=== PATIENT | male | born 1990 | race Two or more races ===

== ENCOUNTER 2016-11-24 13:39 | Emergency (ER) | payer MEDICAID, OTHER ==
[~2016-11-24] VITALS: Ht 175.3 cm; Wt 106.6 kg
[~2016-11-24 13:39] MED LIST: ALPR1TAB7; GABA300C8; HYDR-2595; METH-562; SERT-160
[2016-11-24 14:43] VITALS: BP 153/92
[2016-11-24] MEDS ORDERED: METHOCARBAMOL 500 MG TAB PO ONE (15:30)
[2016-11-24] MEDS ORDERED: ONDANSETRON HCL 4 MG/2 ML VIAL IM ONE (15:30)
[2016-11-24] MEDS ORDERED: HYDROmorphone HCL 2 MG/ML VL IM ONE (15:30)
== END 2016-11-24 16:31 | disposition home or self-care (01) ==
LOC: ER 13:47
DX: G89.29 Other chronic pain (principal); M54.5 Low back pain; M51.27 Other intervertebral disc displacement, lumbosacral region; F12.10 Cannabis abuse, uncomplicated
CPT/HCPCS: 72131; 96372; 99284; J1170; J2405

== ENCOUNTER 2017-02-28 08:43 | Emergency (ER) | payer MEDICAID ==
[~2017-02-28] VITALS: Ht 175.3 cm; Wt 109.8 kg
[2017-02-28 15:22] VITALS: BP 142/60
== END 2017-02-28 16:00 | disposition home or self-care (01) ==
LOC: ER 08:43
DX: G89.29 Other chronic pain (principal); M54.2 Cervicalgia; M54.9 Dorsalgia, unspecified; J02.9 Acute pharyngitis, unspecified; F12.10 Cannabis abuse, uncomplicated

== ENCOUNTER 2018-05-11 09:08 | Emergency (ER) | payer SELFPAY ==
[~2018-05-11] VITALS: Ht 175.3 cm; Wt 111.1 kg
[~2018-05-11 09:08] MED LIST changes: +GABA300C10; -GABA300C8
[2018-05-11 09:21] VITALS: BP 128/73
[2018-05-11] MEDS ORDERED: PROMETHAZINE HCL 25 MG/ML 1ML IM ONE (10:15)
[2018-05-11] MEDS ORDERED: MEPERIDINE HCL (50 MG/ML) 1 ML VIAL IM ONE (10:15)
[2018-05-11] MEDS ORDERED: MEPERIDINE HCL (25 MG/ML) 1ML VIAL IV ONE (11:00)
== END 2018-05-11 11:47 | disposition home or self-care (01) ==
LOC: EDBD 09:08 → ER 09:08
DX: G89.29 Other chronic pain (principal); M54.5 Low back pain; M54.16 Radiculopathy, lumbar region; F12.10 Cannabis abuse, uncomplicated
CPT/HCPCS: 72100; 96372; 96374; 99284; J2175; J2550

== ENCOUNTER 2020-02-15 18:14 | Emergency (ER) | payer SELFPAY ==
[~2020-02-15] VITALS: Ht 175.3 cm; Wt 106.6 kg
[2020-02-15 18:26] VITALS: BP 135/78
[2020-02-15] MEDS ORDERED: KETOROLAC TROMETH 60MG/2ML VIAL IM ONE (19:15)
== END 2020-02-15 19:39 | disposition home or self-care (01) ==
LOC: ER 18:14
DX: S39.012A Strain of muscle, fascia and tendon of lower back, initial encounter (principal); M62.830 Muscle spasm of back; F12.10 Cannabis abuse, uncomplicated; Z79.899 Other long term (current) drug therapy; X58.XXXA Exposure to other specified factors, initial encounter; Y93.89 Activity, other specified; Y92.89 Other specified places as the place of occurrence of the external cause; Y99.8 Other external cause status
CPT/HCPCS: 72100; 96372; 99283; J1885

== ENCOUNTER 2020-02-16 07:29 | Emergency (ER) | payer SELFPAY ==
[~2020-02-16] VITALS: Ht 175.3 cm; Wt 106.6 kg
[2020-02-16 07:39] VITALS: BP 135/59
[2020-02-16] MEDS ORDERED: KETOROLAC TROMETH 60MG/2ML VIAL IM ONE (08:00)
[2020-02-16] MEDS ORDERED: methylPREDNISolone SOD SUCC 125 MG/2 ML VL IM ONE (08:00)
[2020-02-16] MEDS ORDERED: HYDROcodone-ACET 7.5/325MG TAB PO ONE (08:30)
== END 2020-02-16 08:53 | disposition home or self-care (01) ==
LOC: ER 07:29
DX: M54.16 Radiculopathy, lumbar region (principal)
CPT/HCPCS: 96372; 99284; J1885; J2930

== ENCOUNTER 2020-11-18 08:55 | Emergency (ER) | payer MEDICAID ==
[~2020-11-18] VITALS: Ht 175.3 cm; Wt 103.0 kg
[2020-11-18 09:17] VITALS: BP 125/85
== END 2020-11-18 12:06 | disposition home or self-care (01) ==
LOC: ER 08:55
DX: S16.1XXA Strain of muscle, fascia and tendon at neck level, initial encounter (principal); X58.XXXA Exposure to other specified factors, initial encounter; Y93.89 Activity, other specified; Y92.89 Other specified places as the place of occurrence of the external cause; Y99.8 Other external cause status

== ENCOUNTER 2021-07-13 11:25 | Emergency (ER) | payer MEDICAID ==
[~2021-07-13] VITALS: Ht 175.3 cm; Wt 94.3 kg
[2021-07-13 12:41] VITALS: BP 130/75
== END 2021-07-13 12:42 | disposition home or self-care (01) ==
LOC: ER 11:25
DX: S60.222A Contusion of left hand, initial encounter (principal); W18.00XA Striking against unspecified object with subsequent fall, initial encounter; Y93.89 Activity, other specified; Y92.89 Other specified places as the place of occurrence of the external cause; Y99.8 Other external cause status
CPT/HCPCS: 73110; 73130

== ENCOUNTER 2021-09-01 01:40 | Emergency (ER) | payer MEDICAID ==
[~2021-09-01] VITALS: Ht 175.3 cm; Wt 93.0 kg
[2021-09-01 02:54] LABS: Basophils # (auto) 0.1 10 ^3/uL (0-0.2); Basophils % (auto) 0.6 % (0.0-2.0); Eosinophils # (auto) 0 10 ^3/uL (0-0.8); Eosinophils % (auto) 0.2 % (0.0-7.0); Hematocrit 40.5 % (41.0-53.0); Hemoglobin 14.2 g/dL (13.5-17.5); Lymphocytes # (auto) 3.9 10 ^3/uL (0.4-5.4); Lymphocytes % (auto) 27.2 % (10.0-50.0); Mean Corpuscular Hemoglobin 30.8 pg (28.0-32.0); Mean Corpuscular Volume 87.9 fL (80.0-100.0); Monocytes # (auto) 0.9 10 ^3/uL (0-1.3); Neutrophils # (auto) 9.4 10 ^3/uL (1.6-8.6); Nucleated Red Blood Cells % 0.1 %; Red Cell Distribution Width 13.3 % (11.8-14.3); White Blood Cell 14.3 10^3/uL (4.4-10.8)
[2021-09-01 02:56] LABS: Alanine Aminotransferase 35 U/L (16-61); Albumin 3.9 g/dL (3.4-5.0); Anion Gap 9 (5-15); Aspartate Aminotransferase 12 U/L (15-37); BUN/Creatinine Ratio 18.2; Blood Urea Nitrogen 16 mg/dL (7-18); Calcium 8.2 mg/dL (8.5-10.1); Carbon Dioxide 24 mmol/L (21-32); Chloride 105 mmol/L (98-107); GFR African American 131 mL/min; GFR Non-African American 108 mL/min; Glucose 141 mg/dL (74-106); Magnesium 2.2 mg/dL (1.6-2.6); Potassium 3.7 mmol/L (3.5-5.1); Sodium 138 mmol/L (136-145)
[2021-09-01 03:03] LABS: Alkaline Phosphatase 57 U/L (45-117); Bilirubin, Total 0.2 mg/dL (0.2-1.0); Total Protein 8.3 g/dL (6.4-8.2)
[2021-09-01 05:15] VITALS: BP 138/76
== END 2021-09-01 05:33 | disposition home or self-care (01) ==
LOC: ER 01:42
DX: R07.89 Other chest pain (principal); Z79.899 Other long term (current) drug therapy
CPT/HCPCS: 36415; 71045; 80053; 83735; 84484; 85025; 85379; 93005

== ENCOUNTER 2023-06-07 02:52 | Emergency (ER) | payer MEDICAID ==
[~2023-06-07] VITALS: Ht 175.3 cm; Wt 77.0 kg
[~2023-06-07 02:52] MED LIST changes: +GABA-1250; -GABA300C10
[2023-06-07 04:20] LABS: Basophils # (auto) 0.1 10 ^3/uL (0-0.2); Basophils % (auto) 0.6 % (0.0-2.0); Eosinophils # (auto) 0.3 10 ^3/uL (0-0.8); Eosinophils % (auto) 3.4 % (0.0-7.0); Hemoglobin 13.3 g/dL (13.5-17.5); Lymphocytes # (auto) 3.8 10 ^3/uL (0.4-5.4); Lymphocytes % (auto) 41.3 % (10.0-50.0); Mean Corpuscular Hgb Conc. 33.1 g/dL (32.0-36.0); Mean Corpuscular Volume 90.7 fL (80.0-100.0); Monocytes # (auto) 0.7 10 ^3/uL (0-1.3); Monocytes % (auto) 7.8 % (0.0-12.0); Neutrophils # (auto) 4.3 10 ^3/uL (1.6-8.6); Neutrophils % (auto) 46.9 % (37.0-80.0); Nucleated Red Blood Cells % 0.1 %; Red Blood Cells 4.41 10^6/uL (4.5-5.90); Red Cell Distribution Width 13.4 % (11.8-14.3); White Blood Cell 9.3 10^3/uL (4.4-10.8)
[2023-06-07 04:49] LABS: Alanine Aminotransferase 21 U/L (16-61); Albumin 3.8 g/dL (3.4-5.0); Anion Gap 5 (5-15); Aspartate Aminotransferase 16 U/L (15-37); BUN/Creatinine Ratio 19.4 (10.0-20.0); Blood Alcohol < 3.0 mg/dL (<10); Blood Urea Nitrogen 14 mg/dL (7-18); Calcium 8.6 mg/dL (8.5-10.1); Carbon Dioxide 28 mmol/L (21-32); Chloride 110 mmol/L (98-107); GFR African American 163 mL/min; GFR Non-African American 134 mL/min; Glucose 83 mg/dL (74-106); Potassium 3.9 mmol/L (3.5-5.1); Salicylate 2.5 mg/dL (2.8-20.0); Sodium 143 mmol/L (136-145)
[2023-06-07 04:51] LABS: Alkaline Phosphatase 36 U/L (45-117); Bilirubin, Total 0.1 mg/dL (0.2-1.0); Total Protein 7.1 g/dL (6.4-8.2)
[2023-06-07 04:52] LABS: Acetaminophen < 2.0 ug/mL (10-30)
[2023-06-07 05:57] VITALS: BP 105/56; PULSE 54; RESP 16; TEMP 97.9; O2SAT 95
[2023-06-07 06:57] LABS: Urine Bacteria NONE SEEN /hpf (None Seen); Urine Blood Negative /uL (Negative); Urine Specific Gravity 1.006 (1.001-1.035); Urine WBC <1 /hpf (0 - 3)
[2023-06-07 07:33] LABS: Alcohol, Urine < 3.0 mg/dL (0-10); Amphetamine Screen, Urine NEGATIVE (NEGATIVE); Barbiturate Scree,Urine NEGATIVE (NEGATIVE); Benzodiazephine Screen, Urine NEGATIVE (NEGATIVE); Cannabinoid Screen, Urine POSITIVE (NEGATIVE); Cocaine Screen, Urine NEGATIVE (NEGATIVE); Opiate Scree,Urine NEGATIVE (NEGATIVE); Phencyclidine Screen, Urine NEGATIVE (NEGATIVE)
[2023-06-07 10:53] VITALS: RESP 16; O2SAT 98
[2023-06-07] MEDS ORDERED: LORazepam 0.5 MG TAB PO PRN (12:00)
[2023-06-07] MEDS ORDERED: IBUPROFEN 600 MG TAB PO PRN (12:00)
[2023-06-07] MEDS ORDERED: ACETAMINOPHEN 325 MG TAB PO PRN (12:00)
[2023-06-07] MEDS ORDERED: DULoxetine HCL 30 MG CAP PO SCH ×2 (22:00)
== END 2023-06-07 18:08 | disposition left against medical advice (07) ==
LOC: ER 02:53
DX: F25.9 Schizoaffective disorder, unspecified (principal)
CPT/HCPCS: 36415; 80053; 80307; 80320; 80329; 81001; 85025

== ENCOUNTER 2025-06-13 18:28 | Emergency (ER) | payer MEDICAID ==
[~2025-06-13] VITALS: Ht 175.3 cm; Wt 96.0 kg
--- NOTE | 2025-06-13 18:44 | ED.PDOC ---
History of Present Illness HPI Comments This is a 35-year-old male with past medical history of bipolar disorder, major depression presented to the ED with a chief complaint of stabbing lower abdominal pain,rectal pain and bright red bleeding for 2 days prior to this visit. The patient mentioned that for last 2 days it was bright red blood 3 to 4 times a day but today the blood was mixed with the stool which was liquid in nature. He also complaint of lightheadedness since the morning. He denies fever, chills, nausea, vomiting, blurred vision, dysuria, hematuria, recent traveling or any positive sick contact. PCP: Dr. Marino Chief Complaint: GI Bleed Time Seen by MD: 18:30 Primary Care Provider: NONE Allergies: Coded Allergies: NO KNOWN ALLERGIES (Unverified , 09/23/14) Home Meds Reported Medications Methocarbamol (Robaxin) 500 Mg Tab, #60 10/20/15 Gabapentin (Gabapentin) 300 Mg Cap, #90 10/20/15 Hydrocodone-Acetaminophen (Hydrocodone/Acetaminophen) 1 Tab Tab, #60 10/20/15 Sertraline Hcl (Sertraline Hcl) 100 Mg Tab, #60 10/20/15 Alprazolam (Alprazolam) 1 Mg Tab, #60 10/20/15 Information Source: Patient Mode of Arrival: Ambulatory Severity: Moderate Timing: Days Duration: Since onset Prehospital treatment: None Past Medical History PAST MEDICAL HISTORY: Anxiety, Depression Past Medical History (Other): Bipolar disorder Surgical History: Denies all surgeries Surgical History (Other): Spine surgery in 2022 Family History Family History: Reviewed,noncontributory to illness Social History Smoker: Non-Smoker, Pipe Alcohol: Denies ETOH Use Drugs: Marijuana Lives In: Home Constitutional: denies: chills, diaphoresis, fatigue, fever, malaise, sweats, weakness, others EENTM: denies: blurred vision, double vision, ear bleeding, ear discharge, ear drainage, ear pain, ear ringing, eye pain, eye redness, hearing loss, mouth pain, mouth swelling, nasal discharge, nose bleeding, nose congestion, nose pain, photophobia, tearing, throat pain, throat swelling, voice changes, others Respiratory: denies: cough, hemoptysis, orthopnea, SOB at rest, shortness of breath, SOB with excertion, stridor, wheezing, others Cardiovascular: reports: lightheadedness; denies: chest pain, dizzy spells, diaphoresis, Dyspnea on exertion, edema, irregular heart beat, left arm pain, palpitations, PND, syncope, others Gastrointestinal: reports: abdominal pain, rectal bleeding, rectal pain; de nies: abdomen distended, blood streaked bowels, constipated, diarrhea, dysphagia, difficulty swallowing, hematemesis, melena, nausea, poor appetite, poor fluid intake, vomiting, others Genitourinary: denies: burning, dysuria, flank pain, frequency, hematuria, incontinence, penile discharge, penile sore, pain, testicle pain, testicle swelling, urgency, others Neurological: denies: dizziness, fainting, headache, left sided numbness, left sided weakness, numbness, paresthesia, pre-existing deficit, right sided numbness, right sided weakness, seizure, speech problems, tingling, tremors, weakness, others Musculoskeletal: denies: back pain, gout, joint pain, joint swelling, muscle pain, muscle stiffness, neck pain, others Integumetry: denies: bruises, change in color, change in hair/nails, dryness, laceration, lesions, lumps, rash, wounds, others Allergic/Immunocompromised: denies: Difficulty Healing, Frequent Infections, Hives, Itching, others Hematologic/Lymphatic: denies: anemia, blood clots, easy bleeding, easy bruising, swollen glands, others Endocrine: denies: excessive hunger, excessive sweating, excessive thirst, excessive urination, flushing, intolerance to cold, intolerance to heat, unexplained weight gain, unexplained weight loss, others Psychiatric: reports: bipolar disorder, depression; denies: anxiety, hopeless, panic disorder, schizophrenia, sleepless, suicidal, others Physical Exam General Appearance: Mild Distress HEENT: Normal ENT Inspection, Pharynx Normal, TMs Normal Neck: Full Range of Motion, Non-Tender, Normal, Normal Inspection Respiratory: Chest Non-Tender, Lungs Clear, No Accessory Muscle Use, No Respiratory Distress, Normal Breath Sounds Cardiovascular: No Edema, No JVD, No Murmur, No Gallop, Normal Peripheral Pulses, Regular Rate/Rhythm Breast Exam: Deferred Gastrointestinal: No Organomegaly, Non Tender, No Pulsatile Mass, Normal Bowel Sounds, Soft Genitalia: Deferred Pelvic: Deferred Rectal: Deferred Extremities: No calf tenderness, Normal capillary refill, Normal inspection, Normal range of motion, Non-tender, No pedal edema Neurologic: NOT DONE Cerebellar Function: NOT DONE Reflexes: NOT DONE Skin: NOT DONE Peripheral Pulses: 2+ carotid (R), 2+ carotid (L), 2+ femoral (R), 2+ femoral (L), 2+ dorsalis pedis (R), 2+ dorsalis pedis (L), 2+ Radial (R), 2+ Radial (L), 2+ Brachial (R), 2+ Brachial (L) Lymphatic: NOT DONE Was a procedure done? Was a procedure done?: No Differential Dx Considerations may include: Lower GI bleeding, hemorrhoid, anal fissure, colitis X-Ray, Labs, Meds, VS Vital Signs Date Time Temp Pulse Resp B/P (MAP) Pulse Ox O2 Delivery O2 Flow Rate FiO2 06/13/25 19:37 75 16 149/86 06/13/25 19:07 69 18 135/86 06/13/25 18:55 98.4 89 17 135/86 (102) 96 98.4 06/13/25 18:55 Room Air* 0 21 06/13/25 18:30 98.1 101 18 123/80 96 98.1 Lab Test 06/13/25 18:52 Range/Units White Blood Count 9.6 4.4-10.8 10^3/uL Red Blood Count 4.95 4.5-5.90 10^6/uL Hemoglobin 15.2 13.5-17.5 g/dL Hematocrit 43.4 41.0-53.0 % Mean Corpuscular Volume 87.7 80.0-100.0 fL Mean Corpuscular Hemoglobin 30.8 28.0-32.0 pg Mean Corpuscular Hemoglobin Concent 35.1 32.0-36.0 g/dL Red Cell Distribution Width 13.7 11.8-14.3 % Platelet Count 291 140-450 10^3/uL Mean Platelet Volume 8.9 6.9-10.8 fL Neutrophils (%) (Auto) 53.0 37.0-80.0 % Lymphocytes (%) (Auto) 33.3 10.0-50.0 % Monocytes (%) (Auto) 11.9 0.0-12.0 % Eosinophils (%) (Auto) 1.1 0.0-7.0 % Basophils (%) (Auto) 0.7 0.0-2.0 % Neutrophils # (Auto) 5.1 1.6-8.6 10 ^3/uL Lymphocytes # (Auto) 3.2 0.4-5.4 10 ^3/uL Monocytes # (Auto) 1.1 0-1.3 10 ^3/uL Eosinophils # (Auto) 0.1 0-0.8 10 ^3/uL Basophils # (Auto) 0.1 0-0.2 10 ^3/uL Nucleated Red Blood Cells 0.2 % Sodium Level 141 136-145 mmol/L Potassium Level 3.8 3.5-5.1 mmol/L Chloride Level 107 98-107 mmol/L Carbon Dioxide Level 26 20-31 mmol/L Anion Gap 8 5-15 Blood Urea Nitrogen 12 9-23 mg/dL Creatinine 1.06 0.700-1.30 mg/dL Glomerular Filtration Rate Calc 94 >90 mL/min BUN/Creatinine Ratio 11.3 10.0-20.0 Serum Glucose 93 74-106 mg/dL Calcium Level 9.3 8.7-10.4 mg/dL Current Medications Medications (Trade) Dose Ordered Sig/Jordyn Route Start Time Stop Time Status Last Admin Sodium Chloride 500 ml @ 500 mls/hr Q1H ONCE IV 06/13/25 18:45 06/13/25 19:44 DC 06/13/25 19:07 Ondansetron HCl (Zofran) 4 mg ONCE ONCE IV 06/13/25 18:45 06/13/25 18:46 DC 06/13/25 19:07 Pantoprazole Sodium (Protonix) 40 mg ONCE ONCE IV 06/13/25 18:45 06/13/25 18:46 DC 06/13/25 19:07 Morphine Sulfate 2 mg ONCE ONCE IV 06/13/25 18:45 06/13/25 18:46 DC 06/13/25 19:07 X-Ray, Labs, Meds, VS Comment ORDERING PHYSICIAN: JOYCE CULP RESIDENT PROCEDURE(s): ABPL - CT AB PEL WO CON-NO ORAL OR IV REASON: Rectal bleeding ORDER NUMBER(s): [id number], ACCESSION NUMBER(s): [id number] Exam: CT CT AB PEL WO CON-NO ORAL OR IV History: Rectal bleeding Comparison Study: None TECHNIQUE: Multidetector CT of the abdomen was performed from lung bases to pubic symphysis. Imaging was performed without IV contrast. Axial, coronal and sagittal multiplanar reformats were obtained from the axial data set by the technologist. Radiation Dose Information: CT Dose: CTDI volume is 11.82 mGy. Dose-length product is 690.05 mGy*cm FINDINGS: Evaluation of solid organs is limited due to lack of intravenous contrast use. Findings: Lung Bases: No acute or significant lung base finding. Normal heart size. No p leural or pericardial effusion. Liver: The liver is normal in size. No focal lesions. Gallbladder and Biliary Tree: Unremarkable Spleen: Unremarkable Pancreas: The pancreas is grossly normal in appearance. Adrenal Glands: Unremarkable Kidneys: Kidneys are grossly normal without calculi or hydronephrosis. Bladder: Grossly unremarkable for degree of distention. Bowel: The stomach is grossly normal in appearance. Small bowel and colon are normal in caliber and distribution. The appendix is not visualized; however, no secondary findings of acute appendicitis identified. Ascites: Absent Lymphadenopathy: No mesenteric, retroperitoneal or periportal lymphadenopathy. Abdominal Wall and Mesentery: Unremarkable. Vasculature: The visualized abdominal aorta is normal in size and caliber. Evaluation of abdominal and pelvic vessels is limited due to lack of intravenous contrast. Pelvic Organs: Unremarkable Musculoskeletal: No aggressive focal bony lesions, acute fractures or dislocation. Soft tissues: Unremarkable IMPRESSION: 1. No calcified gallstones 2. No findings of bowel obstruction 3. No nephrolithiasis or hydronephrosis. 4. No free air or free fluid. Images Reviewed?: Images reviewed and evaluated by me Time of 1ST Reevaluation: 20:10 Reevaluation 1ST: Improved Patient Education/Counseling: Diagnosis, Treatment Family Education/Counseling: No Family Present Comments This is a 35-year-old male presented to the ED with complaint of rectal pain and bright red rectal bleeding for 2 days, fresh blood and sometimes mixed with stool. History of constipation and not having any bowel movement for last 2 days Initial CBC revealed normal study, H&H stable. BMP showed normal electrolytes and and normal BUN and creatinine CT abdomen without contrast revealed normal study. According to history, examination and imaging most likely rectal bleeding due to hemorrhoid/anal fissure Discussed the lab and imaging results with the patient Patient was sent to home with Anusol HC cream for 2 weeks. SEPSIS Sepsis Screen Date sepsis recognized/suspect: Jun 13, 2025 Time Sepsis recognized/suspect: 1831 Recent Procedure: No On Antibiotic Therapy: No Respiratory Rate >20: No Heart Rate >90: No Temp<36 C (96.8 F) or >38.3 C: No SBP <90 or MAP <65 mmHG: No New Acute Mental Status Change: No Is the patient on CPAP, BIPAP,: No Physician Orders Urinalysis (06/13/25 18:40) Ct Ab Pel Wo Con-No Oral Or Iv (06/13/25 18:40) Vital Signs Date Time Temp Pulse Resp B/P (MAP) Pulse Ox O2 Delivery O2 Flow Rate FiO2 06/13/25 19:37 75 16 149/86 06/13/25 19:07 69 18 135/86 06/13/25 18:55 98.4 89 17 135/86 (102) 96 98.4 06/13/25 18:55 Room Air* 0 21 06/13/25 18:30 98.1 101 18 123/80 96 98.1 Laboratory Tests Test 06/13/25 18:52 White Blood Count 9.6 10^3/uL (4.4-10.8) Medications Medications Dose Ordered Sig/Jordyn Route Start Time Stop Time Status Last Admin Dose Admin Morphine Sulfate 2 mg ONCE ONCE IV 06/13/25 18:45 06/13/25 18:46 DC 06/13/25 19:07 Ondansetron HCl 4 mg ONCE ONCE IV 06/13/25 18:45 06/13/25 18:46 DC 06/13/25 19:07 Pantoprazole Sodium 40 mg ONCE ONCE IV 06/13/25 18:45 06/13/25 18:46 DC 06/13/25 19:07 Sodium Chloride 500 ml @ 500 mls/hr Q1H ONCE IV 06/13/25 18:45 06/13/25 19:44 DC 06/13/25 19:07 Departure 1 Departure Time of Disposition: 20:37 Impression: Primary Impression: Hemorrhoid Additional Impression: Anal fissure Disposition: 01 HOME / SELF CARE / HOMELESS Condition: Fair e-Prescriptions Hydrocortisone Base (Anusol-Hc) 2.5 % Cre 1 APPLIC TOP BID for 14 Days, #30 GRAMS 1 Refill Prov: JOYCE CULP RESIDENT 06/13/25 Critical Care Note Critical Care Time?: No Stability Stability form required: No JOYCE CULP RESIDENT Jun 13, 2025 18:44
[2025-06-13 18:55] VITALS: TEMP 98.4; O2SAT 96
[2025-06-13] MEDS: PANTOPRAZOLE 40 MG/10 ML VIAL INJ IV ONE (19:07)
[2025-06-13] MEDS: SODIUM CHLORIDE 0.9% 500 ML IV ONE (19:07)
[2025-06-13] MEDS: MORPHINE SULFATE INJ 2 MG/ml SYRG IV ONE (19:07)
[2025-06-13] MEDS: ONDANSETRON HCL 4 MG/2 ML VIAL IV ONE (19:07)
[2025-06-13 19:20] LABS: Chloride 107 mmol/L (98-107); Potassium 3.8 mmol/L (3.5-5.1); Sodium 141 mmol/L (136-145)
[2025-06-13 19:21] LABS: Anion Gap 8 (5-15); Carbon Dioxide 26 mmol/L (20-31)
[2025-06-13 19:22] LABS: Calcium 9.3 mg/dL (8.7-10.4)
[2025-06-13 19:26] LABS: Glucose 93 mg/dL (74-106)
[2025-06-13 19:27] LABS: BUN/Creatinine Ratio 11.3 (10.0-20.0); Blood Urea Nitrogen 12 mg/dL (9-23); Hematocrit 43.4 % (41.0-53.0); Hemoglobin 15.2 g/dL (13.5-17.5); Mean Corpuscular Hemoglobin 30.8 pg (28.0-32.0); Mean Corpuscular Volume 87.7 fL (80.0-100.0); Nucleated Red Blood Cells % 0.2 %
--- NOTE | 2025-06-13 19:29 | DVH ---
Exam: CT CT AB PEL WO CON-NO ORAL OR IV History: Rectal bleeding Comparison Study: None TECHNIQUE: Multidetector CT of the abdomen was performed from lung bases to pubic symphysis. Imaging was performed without IV contrast. Axial, coronal and sagittal multiplanar reformats were obtained fr om the axial data set by the technologist. Radiation Dose Information: CT Dose: CTDI volume is 11.82 mGy. Dose-length product is 690.05 mGy*cm FINDINGS: Evaluation of solid organs is limited due to lack of intravenous contrast use. Findings: Lung Bases: No acute or significant lung base finding. Normal heart size. No pleural or pericardial effusion. Liver: The liver is normal in size. No focal lesions. Gallbladder and Biliary Tree: Unremarkable Spleen: Unremarkable Pancreas: The pancreas is grossly normal in appearance. Adrenal Glands: Unremarkable Kidneys: Kidneys are grossly normal without calculi or hydronephrosis. Bladder: Grossly unremarkable for degree of distention. Bowel: The stomach is grossly normal in appearance. Small bowel and colon are normal in caliber and d istribution. The appendix is not visualized; however, no secondary findings of acute appendicitis id entified. Ascites: Absent Lymphadenopathy: No mesenteric, retroperitoneal or periportal lymphadenopathy. Abdominal Wall and Mesentery: Unremarkable. Vasculature: The visualized abdominal aorta is normal in size and caliber. Evaluation of abdominal a nd pelvic vessels is limited due to lack of intravenous contrast. Pelvic Organs: Unremarkable Musculoskeletal: No aggressive focal bony lesions, acute fractures or dislocation. Soft tissues: Unremarkable IMPRESSION: 1. No calcified gallstones 2. No findings of bowel obstruction 3. No nephrolithiasis or hydronephrosis. 4. No free air or free fluid. Radiation optimization: All CT scans at this facility use at least one of these dose optimization isamar hniques: automated exposure control mA and/or kV adjustment per patient size (includes targeted exam s where dose is matched to clinical indication) or iterative reconstruction.
[2025-06-13 19:37] VITALS: BP 149/86; PULSE 75; RESP 16
[2025-06-13] MEDS ORDERED: HYDR2.5C39 TOP (20:32)
[2025-06-13 21:32] LABS: Urine Protein, UAD Negative (Negative)
== END 2025-06-13 22:06 | disposition home or self-care (01) ==
LOC: ER 18:28
DX: K62.5 Hemorrhage of anus and rectum (principal); K60.2 Anal fissure, unspecified; F41.9 Anxiety disorder, unspecified; F32.A Depression, unspecified; F17.290 Nicotine dependence, other tobacco product, uncomplicated
CPT/HCPCS: 36415; 74176; 80048; 81001; 85025; 96361; 96374; 96375; 99285; J2270; J2405; J2470; J7030

== ENCOUNTER 2025-06-30 23:08 | Emergency (ER) | payer MEDICAID ==
[~2025-06-30] VITALS: Ht 175.3 cm; Wt 95.0 kg
[~2025-06-30 23:08] MED LIST changes: +HYDR2.5C39 TOP
[2025-06-30 23:11] VITALS: BP 135/84; RESP 18; TEMP 98.4; O2SAT 95
[2025-06-30 23:14] VITALS: PULSE 90
--- NOTE | 2025-06-30 23:56 | ED.PDOC ---
HPI Comments 35-year-old male who came to ER for chest pains. Patient states for the past 3 days, he has been having intermittent episodes of stabbing substernal chest pains radiating to his left chest, which worsens with deep breathing and movements. Denies any nausea or vomiting Chief Complaint: Chest Pain Time Seen by MD: 23:55 Primary Care Provider: NONE Reviewed Notes: Nurses Notes Allergies: Coded Allergies: NO KNOWN ALLERGIES (Unverified , 09/23/14) Home Meds Active Scripts Hydrocortisone Base (Anusol-Hc) 2.5 % Cre, 1 APPLIC TOP BID for 14 Days, #30 GRAMS 1 Refill Prov:JOYCE CULP RESIDENT 06/13/25 Reported Medications Methocarbamol (Robaxin) 500 Mg Tab, #60 10/20/15 Gabapentin (Gabapentin) 300 Mg Cap, #90 10/20/15 Hydrocodone-Acetaminophen (Hydrocodone/Acetaminophen) 1 Tab Tab, #60 10/20/15 Sertraline Hcl (Sertraline Hcl) 100 Mg Tab, #60 15 Alprazolam (Alprazolam) 1 Mg Tab, #60 15 Information Source: Patient Mode of Arrival: Ambulatory Severity: Moderate Timing: Days Duration: Intermittent Past Medical History PAST MEDICAL HISTORY: Anxiety, Depression Surgical History: Denies all surgeries Family History Family History: Reviewed,noncontributory to illness Social History Smoker: Non-Smoker, Other ([place]) Alcohol: Denies ETOH Use Drugs: Marijuana Lives In: Home Constitutional: denies: chills, diaphoresis, fatigue, fever, malaise, sweats, weakness, others EENTM: denies: blurred vision, double vision, ear bleeding, ear discharge, ear drainage, ear pain, ear ringing, eye pain, eye redness, hearing loss, mouth pain, mouth swelling, nasal discharge, nose bleeding, nose congestion, nose pain, photophobia, tearing, throat pain, throat swelling, voice changes, others Respiratory: denies: cough, hemoptysis, orthopnea, SOB at rest, shortness of breath, SOB with excertion, stridor, wheezing, others Cardiovascular: reports: chest pain; denies: dizzy spells, diaphoresis, Dyspnea on exertion, edema, irregular heart beat, left arm pain, lightheadedness, palpitations, PND, syncope, others Gastrointestinal: denies: abdomen distended, abdominal pain, blood streaked bowels, constipated, diarrhea, dysphagia, difficulty swallowing, hematemesis, melena, nausea, poor appetite, poor fluid intake, rectal bleeding, rectal pain, vomiting, others Genitourinary: denies: burning, dysuria, flank pain, frequency, hematuria, incontinence, penile discharge, penile sore, pain, testicle pain, testicle swelling, urgency, others Neurological: denies: dizziness, fainting, headache, left sided numbness, left sided weakness, numbness, paresthesia, pre-existing deficit, right sided numbness, right sided weakness, seizure, speech problems, tingling, tremors, weakness, others Musculoskeletal: denies: back pain, gout, joint pain, joint swelling, muscle pain, muscle stiffness, neck pain, others Integumetry: denies: bruises, change in color, change in hair/nails, dryness, laceration, lesions, lumps, rash, wounds, others Allergic/Immunocompromised: denies: Difficulty Healing, Frequent Infections, Hives, Itching, others Hematologic/Lymphatic: denies: anemia, blood clots, easy bleeding, easy bruising, swollen glands, others Endocrine: denies: excessive hunger, excessive sweating, excessive thirst, excessive urination, flushing, intolerance to cold, intolerance to heat, unexplained weight gain, unexplained weight loss, others Psychiatric: denies: anxiety, bipolar disorder, depression, hopeless, panic disorder, schizophrenia, sleepless, suicidal, others Physical Exam General Appearance: No Apparent Distress, Normal HEENT: Normal ENT Inspection, Pharynx Normal, TMs Normal Neck: Full Range of Motion, Non-Tender, Normal, Normal Inspection Respiratory: Chest Non-Tender, Lungs Clear, No Accessory Muscle Use, No Respiratory Distress, Normal Breath Sounds Cardiovascular: No Edema, No JVD, No Murmur, No Gallop, Normal Peripheral Pulses, Regular Rate/Rhythm Breast Exam: Deferred Gastrointestinal: No Organomegaly, Non Tender, No Pulsatile Mass, Normal Bowel Sounds, Soft Genitalia: Deferred Pelvic: Deferred Rectal: Deferred Extremities: No calf tenderness, Normal capillary refill, Normal inspection, Normal range of motion, Non-tender, No pedal edema Musculoskeletal : Apperance: Normal Neurologic: Alert, 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 Was a procedure done?: No CP Differential Dx Differential Diagnosis: Anxiety / Panic Attack Differential Diagnosis: Angina, Chest Wall Pain, Costochondritis, Esophageal reflux/spasm, Gastritis, Myocardial Infarction X-Ray, Labs, Meds, VS Vital Signs Date Time Temp Pulse Resp B/P (MAP) Pulse Ox O2 Delivery O2 Flow Rate FiO2 06/30/25 23:14 90 06/30/25 23:11 98.4 107 18 135/84 95 98.4 Time of 1ST Reevaluation: 23:52 Reevaluation 1ST: Unchanged Patient Education/Counseling: Diagnosis, Treatment Family Education/Counseling: No Family Present Comments Patient does not have any cardiac risk factors. His chest pain is very atypical which he describes as a very fleeting twinges on the chest that comes and goes. His EKG and chest x-ray are unremarkable. Patient is stable for discharge. SEPSIS Sepsis Screen Date sepsis recognized/suspect: Jun 30, 2025 Time Sepsis recognized/suspect: 2312 Recent Procedure: No On Antibiotic Therapy: No Respiratory Rate >20: No Heart Rate >90: No Temp<36 C (96.8 F) or >38.3 C: No SBP <90 or MAP <65 mmHG: No New Acute Mental Status Change: No Is the patient on CPAP, BIPAP,: No Physician Orders Urinalysis (06/30/25 23:20) Electrocardigram (06/30/25 23:20) Electrocardigram (07/01/25 00:20) Electrocardigram (07/01/25 02:20) Chest Xray 1 View (06/30/25 23:53) Vital Signs Date Time Temp Pulse Resp B/P (MAP) Pulse Ox O2 Delivery O2 Flow Rate FiO2 06/30/25 23:14 90 06/30/25 23:11 98.4 107 18 135/84 95 98.4 Departure 1 Departure Time of Disposition: 02:09 Impression: Primary Impression: Chest pain Qualified Codes: R07.89 - Other chest pain Disposition: 01 HOME / SELF CARE / HOMELESS Condition: Good Discharged With: Self Critical Care Note Critical Care Time?: No Stability Stability form required: No Heart Score Heart Score: Heart Score Response (Comments) Value History Slightly Suspicious 0 EKG Normal 0 Age <45 0 Risk Factors No known risk factors 0 Troponin Normal limit 0 Total 0 I personally scribed for HAZEL GALVEZ [facility] ([facility] on 06/30/25 at 23:55. Electronically submitted by Krystian Anne ([facility]). HAZEL GALVEZ MD Jun 30, 2025 23:55
--- NOTE | 2025-07-01 00:53 | DVH ---
CHEST RADIOGRAPH Indication: cp Technique: 1 view Comparison: CHEST XRAY 1 VIEW on DOS: 09/01/21 FINDINGS: Lines and Tubes: None Lungs: No focal consolidation. Pleura: No effusion or pneumothorax. Cardiomediastinal contours: Unremarkable. Other: No acute osseous abnormality. IMPRESSION: 1. No acute cardiopulmonary abnormality or significant change from prior exam.
[2025-07-01 02:26] LABS: Urine Protein, UAD Negative (Negative)
--- NOTE | 2025-07-02 08:57 | ECG ---
[facility] Test Date: 2025-06-30 Test Time: 23:14:52 Pat Name: DANY GARDNER Department: ED Room: Gender: M Reliability Engineer: TOBY : 1990 Requested By: HAZEL GALVEZ Order Number: [id number] Reading MD: Dangelo Villarreal Measurements Intervals Robbins Rate: 90 P: 73 SD: 126 QRS: 84 QRSD: 103 T: 41 QT: 365 QTc: 447 Interpretive Statements Sinus rhythm Electronically Signed On 07-04-2025 18:36:05 PDT by Dangelo Villarreal Please click the below link to view image of tracing.
== END 2025-07-01 04:11 | disposition home or self-care (01) ==
LOC: ER 23:08
DX: R07.2 Precordial pain (principal); F41.9 Anxiety disorder, unspecified; F32.A Depression, unspecified; Z79.899 Other long term (current) drug therapy
CPT/HCPCS: 71045; 81001; 93005